=== PATIENT | female | born 1995 | race Caucasian/White ===

== ENCOUNTER 2016-07-14 07:47 | Day surgery (SDC) | payer OTHER ==
--- NOTE | 2016-07-07 12:19 | HISTORY AND PHYSICAL E ---
History and Physical NAME: ILIANA ROACH : 1995 AGE: 21Y ADMITTED: 07/14/2016 ROOM: CHIEF COMPLAINT: A 21-year-old patient with lower abdominal pain and rectal bleeding. She was given prednisone after CT. SOCIAL HISTORY: . She does not smoke and does not drink. PAST SURGICAL HISTORY: Umbilical hernia repair. REVIEW OF SYSTEMS: HEENT: Allergies. RESPIRATORY: Negative. CARDIAC: Negative. ENDOCRINE: Gestational diabetes. GASTROINTESTINAL: Abdominal pain, blood in the stool, hemorrhoids. ONCOLOGY/HEMATOLOGY: Anemia. FAMILY HISTORY: She has an uncle who has Crohn disease. Father is alive with hypertension. Mom is alive with hypertension. She does have a family history of colon cancer in cousin and uncle, paternal. She does have a family history of Crohn disease in mother, grandmother. Ulcerative colitis. PHYSICAL EXAMINATION: VITAL SIGNS: Blood pressure 120/80, weight 144, temp is 98, respirations 18. HEENT: Normal. NECK: Supple. CARDIOVASCULAR: Normal. LUNGS: Clear. ABDOMEN: Soft. NEUROLOGIC: Negative. CONCLUSIONS: Colon screening, rectal bleeding, abdominal pain. PLAN: Scheduled for 07/14/2016. DICTATING PHYSICIAN: NATALIE STAUFFER M.D. 1209M 1624 PHY#: [id number] ID: [id number] JOB#: [id number] ACCT: [id number] cc:[facility] NATALIE STAUFFER M.D. >
[~2016-07-14 07:47] MED LIST: EPINEPHRINE INJ 1 MG/10 ML DISP.SYRIN ONE; FENTANYL CITRATE INJ/PF 100 MCG/2 ML AMPUL ONE; FLUMAZENIL INJ 0.5 MG/5 ML VIAL IV ONE; GLUCAGON,HUMAN RECOMB 1 MG INJ ONE; GLYCOPYRROLATE INJ 0.4 MG/2 ML VIAL ONE; LIDOCAINE 2% JELLY 30 ML TUBE ONE; MIDAZOLAM 2 MG/2 ML INJ ONE; NALOXONE HCL INJ/PF 0.4 MG/1 ML SDV ONE; ONDANSETRON HCL INJ/PF 4 MG/2 ML SDV ONE; PROMETHAZINE HCL INJ 25 MG/1 ML VIAL ONE
[2016-07-14] MEDS: MIDAZOLAM 2 MG/2 ML INJ ONE ×3 (08:15→08:30)
[2016-07-14 09:52] VITALS: BP 111/55
[2016-07-14 10:04] LABS: ABSOLUTE EOSINOPHILS # (AUTO) 0.2 10^3/uL (0.0-0.6); ABSOLUTE LYMPHOCYTES (AUTO) 1.4 10^3/uL (0.5-4.7); ABSOLUTE MONOCYTES (AUTO) 0.7 10^3/uL (0.1-1.4); ABSOLUTE NEUT (AUTO) 10.5 10^3/uL (1.7-8.2); BASOPHILS % (AUTO) 0.2 % (0-2); EOSINOPHILS % (AUTO) 1.9 % (0-6); HEMATOCRIT 35.9 % (36.0-47.0); HEMOGLOBIN 11.3 g/dL (12.0-15.5); LYMPHOCYTES % (AUTO) 10.7 % (13-45); MEAN CORPUSCULAR HEMOGLOBIN 26.5 pg (27.0-33.4); MEAN CORPUSCULAR HGB CONC 31.6 g/dL (32.0-36.0); MEAN CORPUSCULAR VOLUME 84 fl (80-97); MONOCYTES % (AUTO) 5.6 % (3-13); RED BLOOD COUNT 4.27 10^6/uL (3.72-5.28); RED CELL DISTRIBUTION WIDTH 15.4 % (11.5-14.0); SEGMENTED NEUTROPHILS % (AUTO) 81.6 % (42-78); WHITE BLOOD COUNT 12.9 10^3/uL (4.0-10.5)
[2016-07-14 10:46] LABS: ERYTHROCYTE SEDIMENTATION RATE 16 mm/hr (0-20)
--- NOTE | 2016-07-14 12:05 | OPERATIVE REPORT E ---
Operative Report NAME: ILIANA ROACH : 1995 AGE: 21Y DATE OF SURGERY: 07/14/2016 ROOM: PREOPERATIVE DIAGNOSIS: 1. Strong family history of Crohn disease. 2. Abnormal CT. 3. Rectal bleeding. 4. Abdominal pain. POSTOPERATIVE DIAGNOSES: 1. Mild proctitis. 2. External hemorrhoids. 3. Question colitis. OPERATION: Colonoscopy. SURGEON: NATALIE STAUFFER M.D. TISSUE REMOVED OR ALTERED: 1. Biopsy, cecum. 2. Biopsy, right colon. 3. Biopsy, rectosigmoid. ANESTHESIA: Versed 5 and fentanyl 100. DESCRIPTION OF PROCEDURE: Rectal examination: Mild external hemorrhoids, mild proctitis. Sigmoid and descending colon: Normal. Transverse colon normal. Ascending colon normal. Cecum normal. I tried to intubate the terminal ileum; I just could not and I tried for 10 minutes. Scope was withdrawn from cecum, ascending, transverse, descending, and sigmoid, all the way to the rectum. CONCLUSION: 1. Mild proctitis. 2. External hemorrhoids. 3. I did not see definite sign to diagnose Crohn disease or ulcerative colitis, awaiting histopathology. 4. Mild colitis. No definite sign of Crohn's or ulcerative colitis. PLAN: 1. Awaiting biopsy. 2. Awaiting serology of IBD. DICTATING PHYSICIAN: NATALIE STAUFFER M.D. 1272M 55 Y#: [id number] ID: [id number] JOB#: [id number] ACCT: [id number] cc:[facility] NATALIE STAUFFER M.D. >
--- NOTE | 2016-07-14 12:05 | DISCHARGE SUMMARY E ---
Discharge Summary NAME: ILIANA ROACH : 1995 AGE: 21Y ADMITTED: 07/14/2016 DISCHARGED: PROCEDURE: Colonoscopy, biopsy. HISTORY: A 21-year-old female presented with rectal bleeding, abdominal pain, abnormal CT. Diagnosis question Crohn disease. Underwent colonoscopy today which was successful to the cecum. Unable to intubate the ileum. DISCHARGE PLAN: Awaiting biopsy, serology for IBD. Followup office visit in the next few days. Meanwhile, soft, low residue diet. Hold aspirin and nonsteroidal, i.e., Advil and aspirin, ibuprofen. Awaiting lab studies. The patient is to see us in the office in the next few days. DICTATING PHYSICIAN: NATALIE STAUFFER M.D. 1221M 0857 Y#: [id number] ID: [id number] JOB#: [id number] ACCT: [id number] cc:NATALIE STAUFFER M.D. >
== END 2016-07-14 10:00 | disposition home or self-care (01) ==
LOC: END 07:47
PROVIDERS: ATTEND Specialist
PROC: 0DBN8ZX Excision of Sigmoid Colon, Via Natural or Artificial Opening Endoscopic, Diagnostic (ICD-10-PCS; 2016-07-14)
PROC: 0DBP8ZX Excision of Rectum, Via Natural or Artificial Opening Endoscopic, Diagnostic (ICD-10-PCS; 2016-07-14)
PROC: 0DBF8ZX Excision of Right Large Intestine, Via Natural or Artificial Opening Endoscopic, Diagnostic (ICD-10-PCS; principal; 2016-07-14 08:00)
DX: K62.89 Other specified diseases of anus and rectum (principal); K64.4 Residual hemorrhoidal skin tags; K52.832 Lymphocytic colitis; K62.5 Hemorrhage of anus and rectum; Z83.79 Family history of other diseases of the digestive system; Z80.0 Family history of malignant neoplasm of digestive organs; D64.9 Anemia, unspecified; J30.2 Other seasonal allergic rhinitis
CPT/HCPCS: 45380; 86256; 36415; 85025; 85652; 86140; 88305 ×2; J2250; J3010; J1610; J2405; J0171; J2310; J2550; J3490

== ENCOUNTER → 2016-08-28 | Outpatient (CLI) | payer OTHER ==
[2016-08-28 18:52] LABS: ABSOLUTE EOSINOPHILS # (AUTO) 0.3 10^3/uL (0.0-0.6); ABSOLUTE LYMPHOCYTES (AUTO) 1.7 10^3/uL (0.5-4.7); ABSOLUTE MONOCYTES (AUTO) 0.5 10^3/uL (0.1-1.4); ABSOLUTE NEUT (AUTO) 5.7 10^3/uL (1.7-8.2); BASOPHILS % (AUTO) 0.6 % (0-2); EOSINOPHILS % (AUTO) 3.1 % (0-6); HEMATOCRIT 37.8 % (36.0-47.0); HEMOGLOBIN 12.5 g/dL (12.0-15.5); HGB HCT DIFFERENCE -0.3; LYMPHOCYTES % (AUTO) 20.9 % (13-45); MEAN CORPUSCULAR HEMOGLOBIN 27.7 pg (27.0-33.4); MEAN CORPUSCULAR HGB CONC 32.9 g/dL (32.0-36.0); MEAN CORPUSCULAR VOLUME 84 fl (80-97); MONOCYTES % (AUTO) 6.5 % (3-13); RED BLOOD COUNT 4.51 10^6/uL (3.72-5.28); RED CELL DISTRIBUTION WIDTH 15.1 % (11.5-14.0); SEGMENTED NEUTROPHILS % (AUTO) 68.9 % (42-78); WHITE BLOOD COUNT 8.3 10^3/uL (4.0-10.5)
[2016-08-28 19:32] LABS: ERYTHROCYTE SEDIMENTATION RATE 15 mm/hr (0-20)
[2016-08-31 08:13] LABS: DEAMIDATED GLIADIN IGA AB 3 units (0-19); DEAMIDATED GLIADIN IGG AB 9 units (0-19); IMMUNOGLOBULIN A 2 225 mg/dL (87-352); T-TRANSGLUTAMINASE (TTG) IGG 3 U/mL (0-5)
== END ==
LOC: OD 17:57
PROVIDERS: ATTEND Specialist
DX: K90.0 Celiac disease (principal); R10.9 Unspecified abdominal pain
CPT/HCPCS: 36415; 83520; 85025; 85652; 86140

== ENCOUNTER → 2016-10-25 | Outpatient (CLI) | payer OTHER | LOC: OD 17:00 | PROVIDERS: ATTEND Internal Medicine | DX: F39 Unspecified mood [affective] disorder (principal) | CPT/HCPCS: 36415; 84443 ==

== ENCOUNTER → 2016-11-28 | Outpatient (CLI) | payer OTHER | LOC: OD 16:34 | PROVIDERS: ATTEND Internal Medicine | DX: F39 Unspecified mood [affective] disorder (principal) | CPT/HCPCS: 36415; 83036 ==

== ENCOUNTER 2017-05-01 08:29 | Day surgery (SDC) | payer OTHER ==
--- NOTE | 2017-04-20 12:09 | HISTORY AND PHYSICAL E ---
History and Physical NAME: ILIANA ROACH : AGE: 22Y ADMITTED: 05/01/2017 ROOM: Patient admitted for upper scope. CHIEF COMPLAINT: Abdominal pain. Question, Crohn disease. MEDICAL HISTORY: Patient was seen on 07/14/2016, where she did have anemia. MEDICATIONS: Patient takes: 1. Ibuprofen. 2. Tylenol. 3. Trazodone. 4. Zoloft. REVIEW OF SYSTEMS: HEAD, EYES, EARS, NOSE, THROAT: She has allergies. RESPIRATORY: Negative. CARDIAC: Negative. ENDOCRINE: Gestational diabetes. GASTROINTESTINAL: Blood in the stool; hemorrhoids, abdominal pain, anemia. FAMILY HISTORY: Father is alive, hypertension. Mom is alive, hypertension. Uncle has Crohn disease. PHYSICAL EXAMINATION: VITAL SIGNS: Blood pressure 120/80, pulse is 80, respirations 18, temperature is 98. HEAD, EYES, EARS, NOSE, THROAT: Normal. ABDOMEN: Soft. NEUROLOGIC: Exam negative. DIAGNOSTIC STUDIES: Serology positive for inflammatory bowel disease. She did have colonoscopy. Shows mild proctitis, external hemorrhoids; question colitis. I did not see any definite signs of Crohn disease or ulcerative colitis. Biopsy came back no adenoma. No pathologic diagnosis; favor lymphocytic colitis. CBC: White count 8, hemoglobin 12, hematocrit . She has high C-reactive protein, 11.6. No evidence of gallbladder. Patient did have a right mid-kidney cyst. CONCLUSION: 1. ABDOMINAL PAIN; QUESTION LYMPHOCYTIC COLITIS. 2. ABDOMINAL PAIN; QUESTION GASTRITIS, QUESTION HELICOBACTER PYLORI. COMPLAINING OF NAUSEA. PLAN: 1. Upper endoscopy scheduled for 05/01/2017. 2. Continue Delzicol 400 mg for 3 months. 3. Patient to see us after upper endoscopy. DICTATING PHYSICIAN: NATALIE STAUFFER M.D. 1265M 1412 PHY#: [id number] ID: [id number] JOB#: [id number] ACCT: [id number] cc:NATALIE STAUFFER M.D. >
--- NOTE | 2017-04-20 12:54 | HISTORY AND PHYSICAL E ---
History and Physical NAME: ILIANA ROACH : 1995 AGE: 22Y ADMITTED: 05/01/2017 ROOM: CHIEF COMPLAINT: Abdominal pain, hemorrhoids, rectal bleeding. SOCIAL HISTORY: , does not smoke, drinks rarely. PAST SURGICAL HISTORY: Umbilical hernia repair. REVIEW OF SYSTEMS: ENDOCRINE: Gestational diabetes. GASTROINTESTINAL: Abdominal pain, blood in the stool, hemorrhoid. ONCOLOGY/HEMATOLOGY: Anemia. HEENT: Allergies. NEUROLOGY: Negative. FAMILY HISTORY: Father alive, has a history of hypertension. Mom is alive, has history of hypertension. PHYSICAL EXAMINATION: GENERAL: Pleasant, alert and oriented. VITAL SIGNS: Blood pressure 120/80, pulse 80, respirations 18, temperature is 98. The patient is 21. HEAD, EYES, EARS, NOSE AND THROAT: Normal. ABDOMEN: Soft. CARDIOVASCULAR: Normal sinus rhythm. LUNGS: Clear. NEUROLOGIC EXAM: Negative. CONCLUSION: 1. History of collagenous colitis. 2. Abdominal pain. 3. Gastroesophageal reflux. PLAN: 1. Gallbladder ultrasound. 2. Upper endoscopy. 3. Maintain on mesalamine. 4. The patient did have ultrasound that shows no stones, no evidence of cholelithiasis, a tiny cyst in the right kidney, no shadow, no definitive stones. MEDICATIONS: 1. Ibuprofen. 2. Tylenol. DICTATING PHYSICIAN: NATALIE STAUFFER M.D. 1272M 1758 PHY#: [id number] ID: [id number] JOB#: [id number] ACCT: [id number] cc:NATALIE STAUFFER M.D. >
[~2017-05-01 08:29] MED LIST changes: -FLUMAZENIL INJ 0.5 MG/5 ML VIAL IV ONE; +FLUMAZENIL INJ 0.5 MG/5 ML VIAL ONE; -GLUCAGON,HUMAN RECOMB 1 MG INJ ONE; -LIDOCAINE 2% JELLY 30 ML TUBE ONE; -MIDAZOLAM 2 MG/2 ML INJ ONE; -PROMETHAZINE HCL INJ 25 MG/1 ML VIAL ONE
[2017-05-01] MEDS: MIDAZOLAM 2 MG/2 ML INJ ONE ×3 (09:12→09:20)
[2017-05-01 10:30] VITALS: BP 113/61
[2017-05-01 10:30] LABS: ABSOLUTE EOSINOPHILS # (AUTO) 0.1 10^3/uL (0.0-0.6); ABSOLUTE LYMPHOCYTES (AUTO) 0.9 10^3/uL (0.5-4.7); ABSOLUTE MONOCYTES (AUTO) 0.4 10^3/uL (0.1-1.4); ABSOLUTE NEUT (AUTO) 3.7 10^3/uL (1.7-8.2); BASOPHILS % (AUTO) 0.3 % (0-2); EOSINOPHILS % (AUTO) 2.1 % (0-6); HEMATOCRIT 34.5 % (36.0-47.0); HEMOGLOBIN 11.3 g/dL (12.0-15.5); HGB HCT DIFFERENCE -0.6; LYMPHOCYTES % (AUTO) 17.2 % (13-45); MEAN CORPUSCULAR HEMOGLOBIN 28.2 pg (27.0-33.4); MEAN CORPUSCULAR HGB CONC 32.8 g/dL (32.0-36.0); MEAN CORPUSCULAR VOLUME 86 fl (80-97); MONOCYTES % (AUTO) 7.3 % (3-13); RED BLOOD COUNT 4.02 10^6/uL (3.72-5.28); SEGMENTED NEUTROPHILS % (AUTO) 73.1 % (42-78); WHITE BLOOD COUNT 5.1 10^3/uL (4.0-10.5)
[2017-05-01 11:17] LABS: ERYTHROCYTE SEDIMENTATION RATE 9 mm/hr (0-20)
--- NOTE | 2017-05-01 13:54 | DISCHARGE SUMMARY E ---
Discharge Summary NAME: ILIANA ROACH : 1995 AGE: 22Y ADMITTED: 05/01/2017 DISCHARGED: 05/01/2017 HOSPITAL COURSE: The patient is 22. She underwent upper scope for abdominal pain showing duodenitis and gastritis. DISCHARGE PLAN: Awaiting biopsy results. Hold aspirin and nonsteroidal for a week. Lab studies. Followup office visit in the next few days. PROCEDURE: EGD with biopsy. DICTATING PHYSICIAN: NATALIE STAUFFER M.D. 1211M 1021 PHY#: [id number] ID: [id number] JOB#: [id number] ACCT: [id number] cc:[facility] NATALIE STAUFFER M.D. >
--- NOTE | 2017-05-01 13:56 | OPERATIVE REPORT E ---
Operative Report NAME: ILIANA ROACH : 1995 AGE: 22Y DATE OF SURGERY: 05/01/2017 ROOM: PREOPERATIVE DIAGNOSIS: Abdominal pain, questioned gastritis, questioned inflammatory bowel disease. POSTOPERATIVE DIAGNOSIS: Mild gastritis, mild duodenitis. PROCEDURE: Esophagoscopy, gastroscopy, duodenoscopy. SURGEON: NATALIE STAUFFER M.D. ANESTHESIA: Versed 4 mg and Fentanyl 100 mcg. TISSUE REMOVED OR ALTERED: Gastric biopsy for H. pylori. Duodenal biopsy for questioned duodenitis. DESCRIPTION OF PROCEDURE: Baby scope passed under guided vision with no difficulties. Esophagoscopy: Junction at 35 cm, no evidence of ulcer, no hernia, normal-looking esophagus. Gastroscopy: Mild erythema in the antrum, gastritis. Biopsy obtained, mild gastritis. Duodenoscopy: Duodenal bulb shows some erythema, descending duodenum shows some erythema. The picture is that of duodenitis. CONCLUSIONS: Esophagitis, gastritis, duodenitis. No evidence of ulcers. PLAN: 1. Soft diet. 2. Hold aspirin and nonsteroidals. 3. I will obtain serology for inflammatory bowel disease, CRP and CBC. DICTATING PHYSICIAN: NATALIE STAUFFER M.D. 1209M 54 PHY#: [id number] ID: [id number] JOB#: [id number] ACCT: [id number] cc:[facility] NATALIE ARANDA M.D. >
== END 2017-05-01 10:31 | disposition home or self-care (01) ==
LOC: END 08:29
PROVIDERS: ATTEND Specialist
PROC: 0DB98ZX Excision of Duodenum, Via Natural or Artificial Opening Endoscopic, Diagnostic (ICD-10-PCS; 2017-05-01)
PROC: 0DB68ZX Excision of Stomach, Via Natural or Artificial Opening Endoscopic, Diagnostic (ICD-10-PCS; principal; 2017-05-01 09:00)
DX: K21.0 Gastro-esophageal reflux disease with esophagitis (principal); K31.9 Disease of stomach and duodenum, unspecified; K29.80 Duodenitis without bleeding; D64.9 Anemia, unspecified; Z79.899 Other long term (current) drug therapy; Z79.1 Long term (current) use of non-steroidal anti-inflammatories (NSAID)
CPT/HCPCS: 43239; 86256; 36415; 85025; 85652; 86140; 88342 ×2; 88305 ×2; J2250; J3010; J2405; J0171; J2310; J3490

== ENCOUNTER 2018-09-05 15:40 | Outpatient (CLI) | payer OTHER ==
[2018-09-05] MEDS ORDERED: ACETAMINOPHEN 325 MG TABLET PO ONE (16:18)
[2018-09-05] MEDS ORDERED: ACETAMINOPHEN 325 MG TABLET ONE (16:27)
[2018-09-05 16:31] LABS: ABSOLUTE EOSINOPHILS # (AUTO) 0.2 10^3/uL (0.0-0.6); ABSOLUTE LYMPHOCYTES (AUTO) 1.4 10^3/uL (0.5-4.7); ABSOLUTE MONOCYTES (AUTO) 0.6 10^3/uL (0.1-1.4); ABSOLUTE NEUT (AUTO) 6.3 10^3/uL (1.7-8.2); BASOPHILS % (AUTO) 0.6 % (0-2); EOSINOPHILS % (AUTO) 1.9 % (0-6); HEMATOCRIT 29.9 % (36.0-47.0); HEMOGLOBIN 10.1 g/dL (12.0-15.5); LYMPHOCYTES % (AUTO) 16.2 % (13-45); MEAN CORPUSCULAR HEMOGLOBIN 29.8 pg (27.0-33.4); MEAN CORPUSCULAR HGB CONC 33.8 g/dL (32.0-36.0); MEAN CORPUSCULAR VOLUME 88 fl (80-97); PLATELET COUNT 242 10^3/uL (150-450); RED BLOOD COUNT 3.38 10^6/uL (3.72-5.28); RED CELL DISTRIBUTION WIDTH 15.2 % (11.5-14.0); SEGMENTED NEUTROPHILS % (AUTO) 74.3 % (42-78); TOTAL CELLS COUNTED % (AUTO) 100 %; WHITE BLOOD COUNT 8.4 10^3/uL (4.0-10.5)
[2018-09-05 16:36] LABS: APPEARANCE,URINE CLEAR; BILIRUBIN,URINE NEGATIVE (NEGATIVE); COLOR,URINE YELLOW; GLUCOSE, URINE NEGATIVE (NEGATIVE); KETONES,URINE NEGATIVE (NEGATIVE); LEUKOCYTE ESTERASE,URINE TRACE (NEGATIVE); NITRITE,URINE NEGATIVE (NEGATIVE); PROTEIN,URINE NEGATIVE (NEGATIVE); UROBILINOGEN,URINE NEGATIVE mg/dL (<2.0)
[2018-09-05 16:50] LABS: URINE AMPHETAMINES SCREEN NEGATIVE; URINE BARBITURATES SCREEN NEGATIVE; URINE BENZODIAZEPINES SCREEN NEGATIVE; URINE COCAINE SCREEN NEGATIVE; URINE MARIJUANA (THC) SCREEN NEGATIVE; URINE METHADONE SCREEN NEGATIVE; URINE PHENCYCLIDINE SCREEN NEGATIVE
[2018-09-05 17:00] LABS: UR PRO/CREAT RATIO RESULT 0.3 mg/mg (0.0-0.2); URINE CREATININE 57.2 mg/dL (16-327); URINE PROTEIN 19.5 mg/dL (<12)
[2018-09-05 17:02] LABS: ALANINE AMINOTRANSFERASE 17 U/L (9-52); ALBUMIN 3.4 g/dL (3.5-5.0); ALKALINE PHOSPHATASE 138 U/L (38-126); ANION GAP 8 (5-19); ASPARTATE AMINO TRANSFERASE 21 U/L (14-36); BILIRUBIN,DIRECT 0.2 mg/dL (0.0-0.4); BILIRUBIN,TOTAL 0.3 mg/dL (0.2-1.3); BLOOD UREA NITROGEN 10 mg/dL (7-20); CALCIUM 10.2 mg/dL (8.4-10.2); CARBON DIOXIDE 19 mmol/L (22-30); CHLORIDE 108 mmol/L (98-107); GLUCOSE 81 mg/dL (75-110); POTASSIUM 4.4 mmol/L (3.6-5.0); SODIUM 134.7 mmol/L (137-145); TOTAL PROTEIN 6.9 g/dL (6.3-8.2); URIC ACID 4.3 mg/dL (2.5-6.2)
== END 2018-09-05 17:53 | disposition home or self-care (01) ==
LOC: LC 15:40
PROVIDERS: ATTEND Obstetrics & Gynecology Gynecology
PROC: 4A1HXCZ Monitoring of Products of Conception, Cardiac Rate, External Approach (ICD-10-PCS; principal; 2018-09-05)
DX: O16.3 Unspecified maternal hypertension, third trimester (principal); Z3A.37 37 weeks gestation of pregnancy
CPT/HCPCS: 36415; 59025; 80053; 80307; 81001; 82570; 83615; 84156; 84550; 85025

== ENCOUNTER 2018-09-16 16:01 | Outpatient (CLI) | payer OTHER ==
[2018-09-16 16:48] LABS: APPEARANCE,URINE CLOUDY; BILIRUBIN,URINE NEGATIVE (NEGATIVE); COLOR,URINE AMBER; GLUCOSE, URINE NEGATIVE (NEGATIVE); KETONES,URINE NEGATIVE (NEGATIVE); LEUKOCYTE ESTERASE,URINE NEGATIVE (NEGATIVE); NITRITE,URINE NEGATIVE (NEGATIVE); PROTEIN,URINE 100 mg/dL (NEGATIVE); URINE SPECIFIC GRAVITY 1.026
[2018-09-16 17:15] LABS: UR PRO/CREAT RATIO RESULT 0.4 mg/mg (0.0-0.2); URINE CREATININE 252.4 mg/dL (16-327); URINE PROTEIN 104.4 mg/dL (<12)
[2018-09-16 17:25] LABS: URINE AMPHETAMINES SCREEN NEGATIVE; URINE BARBITURATES SCREEN NEGATIVE; URINE BENZODIAZEPINES SCREEN NEGATIVE; URINE COCAINE SCREEN NEGATIVE; URINE MARIJUANA (THC) SCREEN NEGATIVE; URINE METHADONE SCREEN NEGATIVE; URINE PHENCYCLIDINE SCREEN NEGATIVE
[2018-09-16 17:52] LABS: HEMATOCRIT 30.2 % (36.0-47.0); HEMOGLOBIN 10.3 g/dL (12.0-15.5); MEAN CORPUSCULAR HEMOGLOBIN 29.9 pg (27.0-33.4); MEAN CORPUSCULAR VOLUME 88 fl (80-97); PLATELET COUNT 236 10^3/uL (150-450); RED BLOOD COUNT 3.43 10^6/uL (3.72-5.28); RED CELL DISTRIBUTION WIDTH 15.4 % (11.5-14.0); WHITE BLOOD COUNT 5.5 10^3/uL (4.0-10.5)
[2018-09-16 18:15] LABS: ALANINE AMINOTRANSFERASE 41 U/L (9-52); ALBUMIN 3.2 g/dL (3.5-5.0); ALKALINE PHOSPHATASE 151 U/L (38-126); ANION GAP 7 (5-19); ASPARTATE AMINO TRANSFERASE 45 U/L (14-36); BILIRUBIN,DIRECT 0.2 mg/dL (0.0-0.4); BILIRUBIN,TOTAL 0.3 mg/dL (0.2-1.3); BLOOD UREA NITROGEN 11 mg/dL (7-20); CARBON DIOXIDE 19 mmol/L (22-30); CHLORIDE 111 mmol/L (98-107); GLUCOSE 103 mg/dL (75-110); POTASSIUM 3.7 mmol/L (3.6-5.0); SODIUM 137.1 mmol/L (137-145); TOTAL PROTEIN 6.5 g/dL (6.3-8.2); URIC ACID 4.7 mg/dL (2.5-6.2)
--- NOTE | 2018-09-16 18:36 | Non Stress Test Report ---
Non Stress Test Datetime Report Generated by CPN: 09/16/2018 18:36 DEMOGRAPHIC EGA NST: 38.6 INDICATION Indication for Study: Diabetes Mellitus Indication for Study: Ordered by Provider VITAL SIGNS Temperature - NST: 98.7 Temperature - NST: 97.1 Pulse - NST: 92 RESP - NST: 16 NBPSYS NST: 124 NBPDIA NST: 73 (Annotations: Data stored by [facility] on behalf of user) MONITORING Monitor Explained: Monitor Explained; Test Explained; Patient Verbalized Understanding Monitor Explained: Monitor Explained; Test Explained; Patient Verbalized Understanding; Other Time on Monitor: 09/16/2018 16:28 Time on Monitor: 09/05/2018 16:03 Time off Monitor: 09/16/2018 18:28 Time off Monitor: 09/05/2018 16:24 NST Duration: 120 NST Duration: 21 NST INTERVENTIONS NST Interventions: PO Hydration; Reposition Patient NST Interventions: Reposition Patient Physician Notified NST: Roberto Marroquin RNC Physician Notified NST: Brandon Lowery CNM BABY A: [id number] BABY A Movement : Present Movement : Present Contraction Frequency : 0 Contraction Frequency : none FHR Baseline : 135 FHR Baseline : 130 Accelerations : 15X15 Accelerations : 15X15 Decelerations : None Variability : Moderate 6-25bpm Variability : Moderate 6-25bpm NST Review: Meets Criteria for Reactive NST NST Review: Meets Criteria for Reactive NST NST Review and Verified By : Colin Gardner RN NST Results: Reactive NST Results: Reactive NST REPORT Report Trigger: Send Report
== END 2018-09-16 18:53 | disposition home or self-care (01) ==
LOC: LC 16:01
PROVIDERS: ATTEND Obstetrics & Gynecology Gynecology
PROC: 4A1HXCZ Monitoring of Products of Conception, Cardiac Rate, External Approach (ICD-10-PCS; principal; 2018-09-16)
DX: O14.93 Unspecified pre-eclampsia, third trimester (principal); O24.419 Gestational diabetes mellitus in pregnancy, unspecified control; Z3A.38 38 weeks gestation of pregnancy
CPT/HCPCS: 36415; 59025; 80053; 80307; 81005; 82570; 84156; 84550; 85027

== ENCOUNTER 2018-09-17 20:19 | Inpatient (IN) | payer OTHER ==
[2018-09-17] MEDS ORDERED: DINOPROSTONE 10 MG VAGINAL INSERT.SR PV ONE (20:38)
[2018-09-17] MEDS ORDERED: RINGERS SOLUTION,LACTATED 300 ML IV ONE (20:38)
[2018-09-17] MEDS ORDERED: OXYTOCIN/NORMAL SALINE 20 UNIT/1,000 ML RTUINJ IV PRN (20:38)
[2018-09-17] MEDS ORDERED: ACETAMINOPHEN 325 MG TABLET PO PRN (20:38)
[2018-09-17] MEDS ORDERED: RINGERS SOLUTION,LACTATED 1,000 ML IV PRN (20:38)
[2018-09-17] MEDS ORDERED: MAG HYDROX/AL HYDROX/SIMETH SUSP 30 ML UDCUP PO PRN (20:38)
[2018-09-17] MEDS ORDERED: ZOLPIDEM TARTRATE 5 MG TABLET PO PRN (20:38)
[2018-09-17 21:06] LABS: ABSOLUTE EOSINOPHILS # (AUTO) 0.1 10^3/uL (0.0-0.6); ABSOLUTE LYMPHOCYTES (AUTO) 1.4 10^3/uL (0.5-4.7); ABSOLUTE MONOCYTES (AUTO) 0.3 10^3/uL (0.1-1.4); ABSOLUTE NEUT (AUTO) 4.2 10^3/uL (1.7-8.2); BASOPHILS % (AUTO) 0.3 % (0-2); EOSINOPHILS % (AUTO) 2.4 % (0-6); HEMATOCRIT 29.3 % (36.0-47.0); LYMPHOCYTES % (AUTO) 23.1 % (13-45); MEAN CORPUSCULAR HEMOGLOBIN 30.1 pg (27.0-33.4); MEAN CORPUSCULAR HGB CONC 34.3 g/dL (32.0-36.0); MEAN CORPUSCULAR VOLUME 88 fl (80-97); MONOCYTES % (AUTO) 5.3 % (3-13); PLATELET COUNT 245 10^3/uL (150-450); RED BLOOD COUNT 3.33 10^6/uL (3.72-5.28); RED CELL DISTRIBUTION WIDTH 15.6 % (11.5-14.0); SEGMENTED NEUTROPHILS % (AUTO) 68.9 % (42-78); TOTAL CELLS COUNTED % (AUTO) 100 %; WHITE BLOOD COUNT 6.1 10^3/uL (4.0-10.5)
[2018-09-17 21:11] LABS: APPEARANCE,URINE SLIGHTLY-CLOUDY; BILIRUBIN,URINE NEGATIVE (NEGATIVE); COLOR,URINE YELLOW; GLUCOSE, URINE NEGATIVE (NEGATIVE); KETONES,URINE NEGATIVE (NEGATIVE); LEUKOCYTE ESTERASE,URINE TRACE (NEGATIVE); NITRITE,URINE NEGATIVE (NEGATIVE); PROTEIN,URINE NEGATIVE (NEGATIVE); URINE SPECIFIC GRAVITY 1.018; UROBILINOGEN,URINE NEGATIVE mg/dL (<2.0)
[2018-09-17 21:27] LABS: URINE AMPHETAMINES SCREEN NEGATIVE; URINE BARBITURATES SCREEN NEGATIVE; URINE BENZODIAZEPINES SCREEN NEGATIVE; URINE COCAINE SCREEN NEGATIVE; URINE MARIJUANA (THC) SCREEN NEGATIVE; URINE METHADONE SCREEN NEGATIVE; URINE PHENCYCLIDINE SCREEN NEGATIVE
[2018-09-17] MEDS ORDERED: DINOPROSTONE 10 MG VAGINAL INSERT.SR ONE (22:33)
--- NOTE | 2018-09-17 23:07 | Admission Physical ---
Datetime Report Generated by CPN: 09/17/2018 23:07 CURRENT ADMISSION Chief Complaint: Scheduled Induction of Labor Indication for Induction: Maternal Diabetes Admit Impression : Term, Intrauterine ; No Active Labor; Intact Membranes; Induction of Labor Admit Plan: Admit to Unit; Initiate Labor Induction Protocol ALLERGIES Medication Allergies: Yes Medication Allergies: Cefdinir/Hives (09/17/2018) Latex: No Latex Allergies Food Allergies: No known allergies Environmental Allergies: No known allergies OBSTETRICAL HISTORY EDC: 09/24/2018 00:00 : 2 Para: 1 Term: 1 : 0 SAB: 0 IAB: 0 Ectopic: 0 Livin Cesareans: 0 VBACs: 0 Multiple Births: 0 Gestational Diabetes: Yes Rh Sensitization: No Incompetent Cervix: No MIGDALIA: No Infertility: No ART Treatment: No Uterine Anomaly: No IUGR: No Hx Previous C/S: No Macrosomia: No Hx Loss/Stillborn: No PIH: No Hx : No Placenta Previa/Abruption: No Depression/PP Depression: No PTL/PROM: No Post Hemorrhage: No Current Procedures: Ultrasound; NST Obstetrical History Comments: 09/2017 @ 39 weeks, Baby Boy, IOL GDM G2- IOL, GDM SEE RECORDS Alcohol: No Marijuana : No Cocaine: No Other Illicit Drugs: No Cigarettes: Never Smoker. [id number] MEDICAL HISTORY Diabetes: No Diabetes Type: Gestational Diabetes Blood Transfusion: No Pulmonary Disease (Asthma, TB): No Breast Disease: No Hypertension: No Commercial Litigation Attorney Surgery: No Heart Disease: No Hosp/Surgery: Yes Autoimmune Disorder: No Anesthetic Complications: No Kidney Disease: No Abnormal Pap Smear: No Neuro/Epilepsy: No Psychiatric Disorders: Yes Other Medical Diseases: Yes Hepatitis/Liver Disease: No Significant Family History: No Varicosities/Phlebitis: No Trauma/Violence : No Thyroid Dysfunction: No Medical History Comments: Hx of Depression and anxiety, family hx of bipolar disorder, previous hospitalization r/t , laproscopic hernia repair (2015) 2018 - Ulcerative colitis and IBD INFECTIOUS HISTORY Gonorrhea: No Genital Herpes: No Chlamydia: No Tuberculosis: No Syphilis: No Hepatitis: No HIV/AIDS Exposure: No Rash or Viral Illness: No HPV: No PHYSICAL EXAM General: Normal HEENT: Normal Neurologic: Normal Thyroid: Normal Heart: Normal Lungs: Normal Breast: Normal Back: Normal Abdomen: Normal Genitourinary Exam: Normal Extremities: Normal DTRs: Normal Pelvic Type: Adequate Vital Signs: Reviewed; Within Normal Limits VAGINAL EXAM Dilatation: 1 Effacement: 50 Station: -3 Contraction Comments: rare MEMBRANES Membranes: Intact FETUS A EGA: 39.0 Monitoring: External US FHR- Baseline: 120s Variability: Moderate 6-25bpm Accelerations: 15X15 Decelerations: None FHR Category: Category I Admit Comment: Pt presented to L_D for a scheduled labor induction. She is GDM, on Glyburide. She is GBS Negative. Her cervidil was placed at 2255. PLANS FOR LABOR AND DELIVERY Labor and Delivery: None Pain Management: Epidural Feeding Preference: Breast Benefit of Breast Feed Discussed: Yes Circumcision: N/A INFORMED CONSENT Signature: with User ID: [email or web address]
[2018-09-18] MEDS ORDERED: ZOLPIDEM TARTRATE 5 MG TABLET ONE ×2 (00:32→01:27)
[2018-09-18] MEDS ORDERED: NALBUPHINE HCL INJ 10 MG/1 ML AMPULE INJ ONE (07:03)
[2018-09-18] MEDS ORDERED: PROMETHAZINE HCL INJ 25 MG/1 ML VIAL IV ONE ×2 (07:08→12:00)
[2018-09-18] MEDS ORDERED: PROMETHAZINE HCL INJ 25 MG/1 ML VIAL ONE ×2 (07:12→16:41)
[2018-09-18] MEDS ORDERED: NALBUPHINE HCL INJ 10 MG/1 ML AMPULE ONE (07:12)
[2018-09-18] MEDS ORDERED: OXYTOCIN 10 UNIT/ML VIAL ONE (12:36)
[2018-09-18] MEDS ORDERED: EPHEDRINE SULFATE INJ 50 MG/1 ML AMPULE ONE (12:37)
[2018-09-18] MEDS ORDERED: FENTANYL/BUPIVACAINE/NS/PF 300 MCG/150 ML RTUINJ EPI ONE (12:37)
[2018-09-18] MEDS ORDERED: OXYTOCIN/NORMAL SALINE 20 UNIT/1,000 ML RTUINJ ONE (12:37)
[2018-09-18] MEDS ORDERED: LIDOCAINE 1.5%/EPINEPHRINE INJ 5 ML AMP ONE (12:37)
[2018-09-18] MEDS ORDERED: LIDOCAINE 1% INJ-PF (10 MG/ML) 30 ML SDV ONE (12:37)
[2018-09-18] MEDS ORDERED: MISOPROSTOL 0.2 MG TABLET ONE (12:37)
[2018-09-18] MEDS ORDERED: BUPIVACAINE HCL 0.25 % INJ/PF (2.5 MG/1 ML) 30 ML VIAL ONE (12:38)
--- NOTE | 2018-09-18 20:28 | Delivery Summary ---
Del Sum A-C Datetime Report Generated by CPN: 09/18/2018 20:27 DELIVERY PERSONNEL DELIVERY PERSONNEL: [id number] Delivery Doctor:: Yarely William MD Labor and Delivery Nurse:: Jabier Guerra RNlatex foam worker Nurse:: Karen Kaufman RN Neck Band Setter/RFID ANALYST: Elli Brown, GRINDER SET UP OPERATOR INTERNAL MATERNAL INFORMATION Delivery Anesthesia: Epidural Medications After Delivery: Pitocin Bolus-Please Comment; Pitocin Drip 20 Units/1000ml NSS Meds After Delivery Comment: Pitocin 20 units in 1 L NS bolusing per order Maternal Complications: None LABOR SUMMARY EDC: 09/24/2018 00:00 No. Babies in Womb: 1 Attempted: No Labor Anesthesia: None LABOR INFORMATION Reason for Induction: Maternal Diabetes Onset of Labor: 09/18/2018 11:00 Complete Dilatation: 09/18/2018 17:15 Cervical Ripening Agents: Cervidil (Annotations: renoved by RN) Oxytocin: N/A Group B Beta Strep: Negative Antibiotics # of Doses: 0 Antibiotics Time of Last Dose: n/a Name of Antibiotic Given: n/a Steroids Given: None Reason Steroids Not Administered: Not Applicable MEMBRANES Membranes Rupture Method: Artificial Rupture of Membranes: 09/18/2018 14:52 Length of Rupture (hr): 2.48 Amniotic Fluid Color: Clear Amniotic Fluid Amount: Moderate Amniotic Fluid Odor: Normal STAGES OF LABOR Stage 1 hr: 6 Stage 1 min: 15 Stage 2 hr: 0 Stage 2 min: 6 Stage 3 hr: 0 Stage 3 min: 5 Total Time in Labor hr: 6 Total Time in Labor min: 26 VAGINAL DELIVERY Episiotomy: None Laceration #1: None Laceration Extension #1: N/A Laceration #2: None Laceration Extension #2: N/A Laceration #3: None Laceration Extension #3: N/A Laceration Repair: Not Applicable Sponge Count Correct: N/A Sharps Count Correct: N/A CSECTION DELIVERY Primary Indication: N/A Secondary Indication: N/A CSection Incidence: N/A Labor: N/A Elective: N/A BABY A INFORMATION Infant Delivery Date/Time: 09/18/2018 17:21 Method of Delivery: Vaginal Born in Route : No : N/A Forceps: N/A Vacuum Extraction: N/A Shoulder Dystocia : No PRESENTATION/POSITION BABY A Presentation: Cephalic Cephalic Presentation: Vertex Vertex Position: OA Breech Presentation: N/A PLACENTA INFORMATION BABY A Placenta Delivery Time : 09/18/2018 17:26 Placenta Method of Delivery: Spontaneous Placenta Status: Delivered SCORES BABY A Heart Rate 1 min: >100 bpm Resp Effort 1 min: Good Cry Reflex Irritability 1 min: Cough or Sneeze or Pulls Away Muscle Tone 1 min: Active Motion Color 1 min: Blue/Pale Resuscitation Effort 1 min: Tactile Stimulation SCORE 1 MIN: 8 Heart Rate 5 min: >100 bpm Resp Effort 5 min: Good Cry Reflex Irritability 5 min: Cough or Sneeze or Pulls Away Muscle Tone 5 min: Active Motion Color 5 min: Body Pelzer, Extremities Blue Resuscitation Effort 5 min: N/A SCORE 5 MIN: 9 INFORMATION BABY A Gestational Age at Delivery: 39.1 Gestational Status: Full Term- 39- 40.6 Weeks Outcome : Liveborn Infant Condition : Stable Sex: Female IDENTIFICATION BABY A Infant Verification Date/Time: 09/18/2018 17:48 ID Band Number: [id number] Mother's Name Verified: Yes Infant RN Verifying Infant: Carlos Kaufman, RN, J. Francisard, RN WEIGHT/LENGTH BABY A Infant Birthweight (gm): 3054 Infant Weight (lb): 6 Infant Weight (oz): 12 Length (in): 19.50 Length (cm): 49.53 CORD INFORMATION BABY A No. Cord Vessels: 3 Nuchal Cord : N/A Cord Blood Taken: Yes-For Storage (Mom's Blood type +) Infant Suction: Mouth; Nose ASSESSMENT BABY A Infant Complications: None Physical Findings at Delivery: Within Normal Limits Respirations: Appears Normal Skin to Skin: Yes Chemistry Technical Officer/ALS Called : No Infant Care By: LisbethGuille Kaufman, IAN Transferred To: Remains with Mother BABY B INFORMATION : N/A SIGNATURES Signature: with User ID: [email or web address]
[2018-09-19] MEDS ORDERED: DIPHENHYDRAMINE HCL 25 MG CAPSULE PO PRN (04:16)
[2018-09-19] MEDS ORDERED: PSEUDOEPHEDRINE HCL 30 MG TABLET PO PRN (04:16)
[2018-09-19] MEDS ORDERED: GLYCERIN/WITCH HAZEL LEAF 1 EACH MED..PAD TP PRN (04:16)
[2018-09-19] MEDS ORDERED: PROMETHAZINE HCL 25 MG SUPP.RECT PR PRN (04:16)
[2018-09-19] MEDS ORDERED: DIPH/PERTUSS(ACELL)/TETANUS VAC/PF 0.5 ML SYR (>=10YO) IM PRN ×2 (04:16→14:00)
[2018-09-19] MEDS ORDERED: ACETAMINOPHEN 650 MG SUPP.RECT PR PRN (04:16)
[2018-09-19] MEDS ORDERED: ACETAMINOPHEN WITH CODEINE #3 TABLET PO PRN ×2 (04:16)
[2018-09-19] MEDS ORDERED: NA PHOS,M-B/NA PHOS,DI-BA (ADULT) 133 ML ENEMA PR PRN (04:16)
[2018-09-19] MEDS ORDERED: PROMETHAZINE HCL 25 MG TABLET PO PRN (04:16)
[2018-09-19] MEDS ORDERED: MEASLES,MUMPS&RUBELLA VACC/PF 0.5 ML VIAL SUBCUT PRN ×2 (04:16→14:00)
[2018-09-19] MEDS ORDERED: DIBUCAINE 1% OINTMENT 56 GM TP PRN (04:16)
[2018-09-19] MEDS ORDERED: PROMETHAZINE HCL INJ 25 MG/1 ML VIAL IV PRN ×2 (04:16→14:00)
[2018-09-19] MEDS ORDERED: BENZOCAINE/MENTHOL AEROSOL SPRAY 56 ML TOP PRN (04:16)
[2018-09-19] MEDS ORDERED: ZOLPIDEM TARTRATE 5 MG TABLET PO PRN (04:16)
[2018-09-19] MEDS ORDERED: MAGNESIUM HYDROXIDE SUSP 30 ML UDCUP PO PRN (04:16)
[2018-09-19] MEDS ORDERED: IBUPROFEN 800 MG TABLET PO SCH (06:00)
[2018-09-19 07:21] LABS: HEMATOCRIT 25.2 % (36.0-47.0); HEMOGLOBIN 8.5 g/dL (12.0-15.5); MEAN CORPUSCULAR HEMOGLOBIN 29.7 pg (27.0-33.4); MEAN CORPUSCULAR HGB CONC 33.8 g/dL (32.0-36.0); MEAN CORPUSCULAR VOLUME 88 fl (80-97); PLATELET COUNT 183 10^3/uL (150-450); RED BLOOD COUNT 2.87 10^6/uL (3.72-5.28); RED CELL DISTRIBUTION WIDTH 15.4 % (11.5-14.0); WHITE BLOOD COUNT 11.5 10^3/uL (4.0-10.5)
[2018-09-19] MEDS: FAMOTIDINE 20 MG TABLET PO SCH (09:53)
[2018-09-19] MEDS: PRENATAL VITAMIN W DHA CAPSULE PO SCH (09:53)
[2018-09-19] MEDS: SENNOSIDES/DOCUSATE 8.6-50 MG 1 EACH TABLET PO SCH (09:54)
[2018-09-19] MEDS: DOCUSATE SODIUM 100 MG CAPSULE PO SCH ×2 (09:54→17:23)
[2018-09-19] MEDS: FERROUS SULFATE 325 MG TABLET PO SCH ×2 (09:54→17:23)
--- NOTE | 2018-09-19 11:07 | PDOC PROGRESS REPORT ---
Subjective-OB Progress Note for:: 09/19/18 Physical Exam (OB) Vital Signs: Temp Pulse Resp BP Pulse Ox 98.5 F 101 H 18 142/87 H 97 09/19/18 08:45 09/19/18 08:45 09/19/18 08:45 09/19/18 08:45 09/19/18 08:45 Intake & Output 09/18/18 09/19/18 09/20/18 06:59 06:59 06:59 Intake Total 1000 Balance 1000 Weight 81.1 kg - PIH/Pre-Eclampsia DTR's: 3 + Clonus: Negative Headache: Absent Epigastric Pain: No Visual Changes: No - Lochia Lochia Amount: Scant < 10 ml Lochia Color: Rubra/Red - Abdomen Description: Soft Hernia Present: No Bowel Sounds: Normoactive Flatus Presence: Present Stool: No Fundal Description: Firm Fundal Height: u/u - u/2 Objective-Diagnostic Laboratory: 09/19/18 06:37 09/19/18 09/19/18 06:37 06:37 WBC 11.5 H RBC 2.87 L Hgb 8.5 L Hct 25.2 L MCV 88 MCH 29.7 MCHC 33.8 RDW 15.4 H Plt Count 183 Blood Type O NEGATIVE
[2018-09-20] MEDS: FAMOTIDINE 20 MG TABLET PO SCH ×2 (02:26→09:26)
--- NOTE | 2018-09-20 07:52 | PDOC DISCHARGE SUMMARY ---
Final Diagnosis Discharge Date: 09/20/18 - Final Diagnosis (1) Acute blood loss anemia Is this a current diagnosis for this admission?: Yes (2) Delivery normal Is this a current diagnosis for this admission?: Yes (3) Depression with anxiety Is this a current diagnosis for this admission?: Yes Discharge Data - Discharge Medication Home Medications: Acetaminophen [Tylenol] 325 mg PO PRN PRN 07/10/16 Sertraline HCl [Zoloft] 100 mg PO DAILY 04/25/17 Glyburide/Metformin HCl [Glyburide-Metformin 2.5-500 mg] 2.5 mg PO DAILY 09/16/18 Pnv No.95/Ferrous Fum/Folic AC [ Caplet] 1 tab PO DAILY 09/16/18 Reason(s) for Admission: Induction of Labor, Gestional Diabetes Procedures: NST Intrapartum Procedure(s): Spontaneous Vaginal Delivery - Diagnosis Test Laboratory: Temp Pulse Resp BP Pulse Ox 97.9 F 93 18 143/83 H 100 09/19/18 19:45 09/19/18 20:56 09/19/18 19:45 09/19/18 20:56 09/19/18 19:45 09/17/18 09/17/18 09/19/18 20:44 20:44 06:37 RBC 3.33 L 2.87 L Hgb 10.0 L 8.5 L Hct 29.3 L 25.2 L Urine Opiates Screen NEGATIVE - Discharge information/Instructions Discharge Activity: Balance Activity w/Rest, Pelvic Rest Discharge Diet: Regular Disposition: HOME, SELF-CARE Follow up with: [facility] in: 4, Days
[2018-09-20 08:13] VITALS: BP 136/81
[2018-09-20] MEDS: PRENATAL VITAMIN W DHA CAPSULE PO SCH (09:26)
[2018-09-20] MEDS: DOCUSATE SODIUM 100 MG CAPSULE PO SCH (09:27)
[2018-09-20] MEDS: SENNOSIDES/DOCUSATE 8.6-50 MG 1 EACH TABLET PO SCH (09:27)
[2018-09-20] MEDS: FERROUS SULFATE 325 MG TABLET PO SCH (09:28)
== END 2018-09-20 11:43 | disposition home or self-care (01) | DRG 807 ==
LOC: LR 20:19 → 2S 09-18 20:35
PROVIDERS: ADMIT Obstetrics & Gynecology; ATTEND Obstetrics & Gynecology
PROC: 10E0XZZ Delivery of Products of Conception, External Approach (ICD-10-PCS; principal; 2018-09-18)
PROC: 10907ZC Drainage of Amniotic Fluid, Therapeutic from Products of Conception, Via Natural or Artificial Opening (ICD-10-PCS; 2018-09-18)
PROC: 3E0P7VZ Introduction of Hormone into Female Reproductive, Via Natural or Artificial Opening (ICD-10-PCS; 2018-09-18)
PROC: 4A1HX4Z Monitoring of Products of Conception, Cardiac Electrical Activity, External Approach (ICD-10-PCS; 2018-09-18)
PROC: 3E0234Z Introduction of Serum, Toxoid and Vaccine into Muscle, Percutaneous Approach (ICD-10-PCS; 2018-09-18)
DX: O24.425 Gestational diabetes mellitus in childbirth, controlled by oral hypoglycemic drugs (principal); Z37.0 Single live birth; O99.343 Other mental disorders complicating pregnancy, third trimester; F41.8 Other specified anxiety disorders; Z3A.39 39 weeks gestation of pregnancy; O26.893 Other specified pregnancy related conditions, third trimester; Z67.41 Type O blood, Rh negative; O99.013 Anemia complicating pregnancy, third trimester; Z88.1 Allergy status to other antibiotic agents; Z81.8 Family history of other mental and behavioral disorders
CPT/HCPCS: 36415; 80307; 81005; 85025; 85027; 85461; 86592; 86850; 86900; 86901; 94760; J2300; J2550; J2590; J2790; J3010; J3490

== ENCOUNTER → 2018-12-26 | Outpatient (CLI) | payer OTHER ==
[2018-12-26 13:01] LABS: ABSOLUTE BASOPHILS # (AUTO) 0.1 10^3/uL (0.0-0.2); ABSOLUTE EOSINOPHILS # (AUTO) 0.6 10^3/uL (0.0-0.6); ABSOLUTE LYMPHOCYTES (AUTO) 1.7 10^3/uL (0.5-4.7); ABSOLUTE MONOCYTES (AUTO) 0.4 10^3/uL (0.1-1.4); ABSOLUTE NEUT (AUTO) 4.5 10^3/uL (1.7-8.2); BASOPHILS % (AUTO) 0.7 % (0-2); EOSINOPHILS % (AUTO) 8.3 % (0-6); HEMATOCRIT 37.5 % (36.0-47.0); HEMOGLOBIN 12.4 g/dL (12.0-15.5); LYMPHOCYTES % (AUTO) 22.8 % (13-45); MEAN CORPUSCULAR HEMOGLOBIN 27.5 pg (27.0-33.4); MEAN CORPUSCULAR VOLUME 83 fl (80-97); MONOCYTES % (AUTO) 6.1 % (3-13); PLATELET COUNT 253 10^3/uL (150-450); RED CELL DISTRIBUTION WIDTH 15.7 % (11.5-14.0); SEGMENTED NEUTROPHILS % (AUTO) 62.1 % (42-78); TOTAL CELLS COUNTED % (AUTO) 100 %; WHITE BLOOD COUNT 7.3 10^3/uL (4.0-10.5)
[2018-12-26 13:10] LABS: APPEARANCE,URINE SLIGHTLY-CLOUDY; BILIRUBIN,URINE NEGATIVE (NEGATIVE); COLOR,URINE STRAW; GLUCOSE, URINE NEGATIVE (NEGATIVE); KETONES,URINE NEGATIVE (NEGATIVE); LEUKOCYTE ESTERASE,URINE TRACE (NEGATIVE); NITRITE,URINE NEGATIVE (NEGATIVE); PROTEIN,URINE NEGATIVE (NEGATIVE); URINE SPECIFIC GRAVITY 1.012; UROBILINOGEN,URINE NEGATIVE mg/dL (<2.0)
[2018-12-26 13:24] LABS: ALANINE AMINOTRANSFERASE 22 U/L (9-52); ALBUMIN 4.1 g/dL (3.5-5.0); ALKALINE PHOSPHATASE 108 U/L (38-126); ANION GAP 9 (5-19); ASPARTATE AMINO TRANSFERASE 24 U/L (14-36); BILIRUBIN,DIRECT 0.2 mg/dL (0.0-0.4); BILIRUBIN,TOTAL 0.3 mg/dL (0.2-1.3); BLOOD UREA NITROGEN 13 mg/dL (7-20); CALCIUM 9.8 mg/dL (8.4-10.2); CARBON DIOXIDE 26 mmol/L (22-30); CHLORIDE 107 mmol/L (98-107); GLUCOSE 103 mg/dL (75-110); POTASSIUM 4.6 mmol/L (3.6-5.0); TOTAL PROTEIN 7.2 g/dL (6.3-8.2)
== END ==
LOC: OD 12:15
PROVIDERS: ATTEND Family Medicine
DX: R03.0 Elevated blood-pressure reading, without diagnosis of hypertension (principal)
CPT/HCPCS: 36415; 80053; 81001; 83036; 84443; 85025